=== PATIENT | male | born 1980 | race Caucasian/White ===

== ENCOUNTER 2017-05-12 09:52 | Outpatient (CLI) | payer OTHER | END 2017-05-12 09:53 | disposition home or self-care (01) | LOC: SC 09:52 | PROVIDERS: ATTEND Internal Medicine Pulmonary Disease | DX: G47.30 Sleep apnea, unspecified (principal); G47.10 Hypersomnia, unspecified; R06.83 Snoring; R53.83 Other fatigue | CPT/HCPCS: 99203; 99212 ==

== ENCOUNTER 2017-10-17 19:23 | Outpatient (CLI) | payer OTHER | END 2017-10-17 19:24 | disposition home or self-care (01) | LOC: SC 19:23 | PROVIDERS: ATTEND Internal Medicine Pulmonary Disease | DX: G47.33 Obstructive sleep apnea (adult) (pediatric) (principal); G47.61 Periodic limb movement disorder | CPT/HCPCS: 95810 ==

== ENCOUNTER 2017-11-12 14:27 | Outpatient (CLI) | payer OTHER | END 2017-11-12 14:28 | disposition home or self-care (01) | LOC: SC 14:27 | PROVIDERS: ATTEND Nurse Practitioner Family | DX: G47.33 Obstructive sleep apnea (adult) (pediatric) (principal) | CPT/HCPCS: 99212; 99214 ==

== ENCOUNTER 2021-10-22 08:00 | Outpatient (CLI) | payer OTHER ==
--- NOTE | 2021-10-22 17:36 | XRAY Report ---
PROCEDURE: Shoulder 3 View RT INDICATIONS: SHOULDER PX TECHNIQUE: 4 views of the shoulder were acquired. COMPARISON: None. FINDINGS: Bones: No fractures or dislocations. Mild acromioclavicular joint osteoarthritic changes are seen w ith joint space narrowing and subchondral sclerosis. No suspicious bony lesions. Visualized ribs jd ear intact. Soft tissues: No suspicious soft tissue calcifications. IMPRESSION: Mild right acromioclavicular joint osteoarthritis. No fracture or dislocation. No gross soft tissue abnormality. Reviewed by: Tomy Avilez MD on 10/22/2021 5:35 PM PDT Approved by: Tomy Avilez MD on 10/22/2021 5:35 PM PDT Station ID: [id number]
== END 2021-10-22 23:59 | disposition home or self-care (01) ==
LOC: DI.WOS 08:00
PROVIDERS: ATTEND Physician Assistant
DX: M19.011 Primary osteoarthritis, right shoulder (principal)

== ENCOUNTER 2022-01-07 09:33 | Outpatient (CLI) | payer OTHER ==
[2022-01-07 10:11] VITALS: BP 120/72
--- NOTE | 2022-01-07 10:11 | SLEEP CARE CONSULTATION ---
Information from patient questionnaire entered by Junaid Martin. I have reviewed and concur with the information entered by Junaid Martin. This document represents the service I personally performed and the decisions made by me, Alexandru Aburto MD, [facility]. History of Present Illness Service Date and Time: 01/07/2022 0933 Reason for Visit: Re-establish care Chief Complaint: reports: Unrefreshed sleep, Snoring, Excessive daytime sleepiness, Fatigue Date of Onset: YEARS Usual bedtime: 10PM Time it takes to fall asleep: 30 MINUTES Snores at night: Yes Observed to quit breathing while asleep: Yes Sleeps alone due to snoring: No (PARTNER HAS TO FALL ASLEEP BEFORE PT ) Number of times waking at night: 1-2 Reasons for waking at night: reports: Other (UNKNOWN REASON ) Toss, Turn, or Twitch while sleeping: Yes Recalls having dreams: Yes (SOMETIMES) Usually gets out of bed at: 530 Feels refreshed in the morning: No Morning headache: No Sleepy or fatigued during the day: Yes Ever fallen asleep while driving: No Takes day naps: No Dreams during day naps: No Prior sleep studies: Yes Year and Where: [facility] 2017 Additional HPI information: I had the pleasure of seeing Mr. Perez today regarding obstructive sleep apnea- hypopnea. As you know, he is a 36-year-old gentleman who was diagnosed here with mild obstructive sleep apnea-hypopnea (AHI = 9.8 and khalif oxygen saturation = 85%). The respiratory events occurred almost exclusively during supine sleep. The patient was symptomatic for fatigue and excessive daytime sleepiness. Different treatment options were discussed, and he went with the oral appliance therapy. He did not return until now. He said the oral appliance did not work because he continued to feel tired after 6 months of using it. - Parasomnia Symptoms Ever been unable to move upon waking from sleep: Yes Walks in sleep: No Talks in sleep: No Ever acted out dreams in sleep: No Ever felt weak in the knees when startled or emotional: No Bothered by creepy, crawly, restless sensations in legs: No Problems with memory or concentration: Yes Subjective Initial Paradise Sleepiness Scale score: 8 (12/16/21) Social History The patient's occupation is a [employer]. Patient is and lives in [place]. Have you smoked in the past 12 months: No Alcohol use: Yes Alcohol amount and frequency: 1-3 A WEEK Caffeine use: Yes Caffeine amount and frequency: 3-5 A DAY Family History Family history of sleep disordered breathing: Yes Family Hx Sleep Apnea: Father: Snoring Allergies and Home Medications Known drug allergies: No Drug allergies reviewed: Yes Home medication list reviewed: Yes Allergy and home medication list: Allergies No Known Drug Allergies Allergy (Verified 08/29/14 08:52) Review of Systems Weight gain over past 5 years: 15 Cardiovascular: denies: high blood pressure, palpitations, chest pain, irregular heart rate or pulse, leg or foot swelling, have to sleep sitting up, other Respiratory: denies: shortness of breath, wheeze, sputum production, chronic cough, other Gastrointestinal: denies: heartburn, difficulty swallowing, nausea, vomitting, diarrhea, abdominal pain, other Urinary: denies: incontinence, frequency, urgency, impotence, other Neurological: denies: headaches, seizure, head trauma, disorientation, speech dysfunction, gait or balance problems, fainting or unconsciousness, other Psychiatric: denies: Attention Deficit Hyperactivity, anxiety, depression, mood disorder, claustrophobia, other Ear/Nose/Throat: denies: nasal congestion, sinus problems, nose bleeds, dry mouth/throat, hoarseness, injury to nose, tonsillectomy, wisdom teeth removed, other Endocrine: denies: thyroid disease, history of goiter, sluggishness, too hot or cold, excessive thirst, increased appetite, increased urination, unexplained weakness, other Musculoskeletal: denies: joint pain, neck pain, back pain, joint swelling, muscle pain or cramping, mobility problems, other Immunologic: reports: allergies to food or environment Physical Exam Vital signs obtained and entered by: FREDI CORONEL Blood Pressure: 120/72 (LEFT ARM ) Cuff size: regular Heart Rate: 61 O2 Saturation: 97 Height: 5 ft 10 in Weight: 237 lb Body Mass Index: 34.0 BMI Classification: Obese Neck circumference: 18 (INCHES ) Mood/affect: Normal HEENT: No craniofacial malformation Nostrils: partially obstructed (left) Turbinates: normal Septum: midline Mouth and throat: narrow oropharynx Soft palate: long Hard palate: normal Uvula: normal Uvula visualization: 50% Mallampati Class II Tongue: normal in size Tonsils: small Chin and jaw: normal size and position Neck: normal w/o lymphadenopathy or thyromegaly Heart: regular rate and rhythm Lungs: clear bilaterally Extremities: no edema or clubbing Neurologic: intact Impression and Plan IMPRESSION: 1. Obstructive Sleep Apnea-Hypopnea Syndrome, mild when diagnosed 4 years ago. He did not benefit from the oral appliance therapy. He is now interested in the positive airway pressure therapy. Therefore, I will repeat the in-laboratory polysomnography. Plan: 1. Schedule polysomnography and return in 1 to 2 weeks after the study to discuss result and initiate therapy. 2. Avoid long distance driving or when feeling sleepy. 3. Avoid alcohol, sedative and muscle relaxant around bedtime. 4. Attempt to lose weight. Follow up with Sleep Care in: 1-2 months Visit Type: In Office Time Spent with Patient (minutes): 15 Provider Statement: I spent 100% of the Face to Face Visit with the patient with greater than 50% spent counseling the patient and coordination of care.
== END 2022-01-07 09:34 | disposition home or self-care (01) ==
LOC: SC 09:33
PROVIDERS: ATTEND Internal Medicine Pulmonary Disease
DX: G47.33 Obstructive sleep apnea (adult) (pediatric) (principal); E66.9 Obesity, unspecified; Z68.34 Body mass index [BMI] 34.0-34.9, adult
CPT/HCPCS: 99202; 99212

== ENCOUNTER 2022-02-05 20:27 | Outpatient (CLI) | payer OTHER | END 2022-02-05 20:28 | disposition home or self-care (01) | LOC: SC 20:27 | PROVIDERS: ATTEND Internal Medicine Pulmonary Disease | DX: G47.33 Obstructive sleep apnea (adult) (pediatric) (principal) | CPT/HCPCS: 95810 ==

== ENCOUNTER 2022-02-27 14:31 | Outpatient (CLI) | payer OTHER ==
[2022-02-27 14:49] VITALS: BP 120/70
--- NOTE | 2022-02-27 14:49 | SLEEP CARE CONSULTATION ---
Information from patient questionnaire entered by Shamika Hilliard. I have reviewed and concur with the information entered by Shamika Hilliard. This document represents the service I personally performed and the decisions made by me, Nicole Cordero ARNP. History of Present Illness Service Date and Time: 02/27/2022 1431 Initial Alloy Sleepiness Scale score: 8 (12/16/21) Current Alloy Sleepiness Scale score: 13 (02/27/2022) Additional HPI information: JAMES GUTIERREZ returns for follow up and results of the recently performed polysomnography. I explained the pathophysiology behind obstructive sleep apnea. We then spent quite a bit of time discussing different treatment options. For mild obstructive sleep apnea, surgery and oral appliance are alternatives to nasal CPAP therapy but in moderate or severe cases, nasal CPAP is the most effective and reliable treatment. Because apnea is primarily in supine position, then positional management therapy could be effective. Methods discussed such as positioning with pillows to prevent supine sleep. I reviewed the impact of weight changes on sleep apnea and strongly recommended losing weight. After some discussion, the patient opted to go with the nasal CPAP therapy. Nasal autoCPAP set at 4-15 cmH20 will be ordered with rationale explained. A manual titration study will be ordered if unable to find optimal pressure with office adjustments. I explained how CPAP machine works and what to expect when using the machine. Using CPAP every night in order to get used to it was emphasized. Patient advised to put CPAP mask on before getting into bed so as not to fall asleep w ithout CPAP. To assist acclimation to CPAP use, it could also be used for a short time during day while reading or watching TV. The patient was instructed to call the CPAP supplier to discuss any mechanical problem that may occur. If the mask given is uncomfortable or is difficult to keep on through the night even with adjustment, contact the CPAP supplier as many will replace with another mask style if notified before 30 days. If snoring or perceives is not getting enough air or too much air from the machine, notify this office.Patient counseled not drink alcohol less than 4 hours before bedtime as it can increase snoring and apnea. Patient was cautioned about risks of drowsy driving until sleepiness symptoms resolve. Sleep Study - Results Type of Sleep Study: Polysomnography (COMPLETED 02/05/2022) Prior sleep studies: Yes Year and Where: [facility] 2017 Polysomnography/Home Sleep Study results: IMPRESSION: The quality of the study is good. The patient had normal sleep efficiency. The sleep architecture was abnormal for sleep fragmentation and reduced amount of time spent in slow wave sleep (N3). Respiratory monitoring showed mild obstructive sleep apnea-hypopnea (AHI = 13.7) associated with frequent arousals, oxyhemoglobin desaturation and mild hypoxia (khalif oxygen saturation of 81%). The respiratory events occurred almost exclusively during supine sleep (supine AHI = 45.4; non-supine = 4.42). Snore was moderate to loud in intensity. There was no significant periodic leg movement of sleep. Cardiac rhythm was normal sinus rhythm without significant arrhythmia. No abnormal behavior (parasomnia) observed during the night. Allergies and Home Medications Drug allergies reviewed: Yes (NKDA) Home medication list reviewed: Yes (no changes) Review of Systems Review of systems same as previous: Yes (no changes) Physical Exam Vital signs obtained and entered by: SHAMIKA Reid MA Blood Pressure: 120/70 (LEFT ARM) Cuff size: regular Heart Rate: 56 O2 Saturation: 96 Height: 5 ft 10 in Weight: 241 lb 3.2 oz Body Mass Index: 34.6 BMI Classification: Obese Impression and Plan 1. Obstructive Sleep Apnea-Hypopnea Syndrome, mild, with lowest oxygen saturation of 81%. Obviously this is the cause of the patients symptoms of unrefreshed sleep, and excessive daytime sleepiness. As mentioned above, the patient will be started on nasal autoCPAP therapy with pressure set at 4-15 cmH2 O. Compliance guidelines also reviewed. A copy of compliance guidelines will be given for reference at check out. Because the apnea is more severe supine, I instructed to avoid sleeping supine using pillow positioning until able to start CPAP use. 2. Obesity, unspecified. Currently patients BMI is 34.6. Obesity increases the risk of apnea, CPAP pressure requirements and overall health risks especially cardiovascular and diabetes. Thus patient is advised to lose weight. * Nasal auto CPAP therapy, pressure at 4-15 cm H2O. * Attempt to lose weight. * Avoid alcohol consumption near bedtime. * Avoid supine sleep until using CPAP. * The patient is again cautioned about driving until sleepiness completely resolves. * Return one month after CPAP obtained. I will assess response to therapy and compliance at that time. Counseling Topics: Sleeping position, Weight loss health impact Visit Type: In Office Time Spent with Patient (minutes): 21 Provider Statement: I spent 100% of the Face to Face Visit with the patient with greater than 50% spent counseling the patient and coordination of care.
== END 2022-02-27 14:32 | disposition home or self-care (01) ==
LOC: SC 14:31
PROVIDERS: ATTEND Nurse Practitioner Family
DX: G47.33 Obstructive sleep apnea (adult) (pediatric) (principal); E66.9 Obesity, unspecified; Z68.34 Body mass index [BMI] 34.0-34.9, adult
CPT/HCPCS: 99212; 99213

== ENCOUNTER 2023-02-25 06:55 | Outpatient (CLI) | payer OTHER ==
[2023-02-25] MEDS ORDERED: GADOTERATE MEGLUMINE 10 MMOL/20 ML VIAL ONE (07:23)
--- NOTE | 2023-02-25 14:09 | MRI Report ---
PROCEDURE: FOOT W/WO - LT INDICATIONS: SOFT TISSUE DISORDER CONTRAST: 2OML CLARISCAN TECHNIQUE: Noncontrast sagittal T1 spin echo and T2 fast spin echo with fat saturation, long-axis T1 spin echo a nd T2 fast spin echo with fat saturation; short-axis T1 spin echo, proton density fast spin echo, and T2 fast spin echo with fat saturation through the forefoot. Post-contrast short axis, long axis, an d sagittal T1 spin echo with fat saturation through the forefoot. COMPARISON: None. FINDINGS: Image quality: Excellent. Bones and joints: No suspicious osseous enhancement. No bone marrow contusions or metatarsal stress fractures. Mild first MTP joint osteoarthritis is seen with joint space narrowing and subchondral sc lerosis. Soft tissues: There is edema involving the abductor digiti minimi muscle and tendon and show mild con trast enhancement. No other area of abnormal soft tissue enhancement. Rest of the visualized plantar foot muscles demonstrate normal signal and bulk. Visualized flexor and extensor tendons appear intac t, without tenosynovitis. The distal insertions of the peroneus brevis and longus tendons appear int act. The principal Lisfranc ligament appears intact. No soft tissue ganglion cysts or bursal fluid collections. Sagittal images demonstrate no evidence for plantar plate tears. IMPRESSION: 1. Tendinosis involving distal left abductor digiti minimi tendon extending to musculotendinous junct ion with strain/partial thickness tear involving left abductor digiti minimi muscle along dorsal and lateral aspect of fifth metatarsal shaft. No full-thickness muscle or tendon rupture. 2. No enhancing soft tissue mass or drainable fluid collection. 3. Mild first MTP joint osteoarthritis. No marrow edema. No fracture or dislocation. No abnormal intr aosseous enhancement. Reviewed by: Tomy Avilez MD on 02/25/2023 2:08 PM PST Approved by: Tomy Avilez MD on 02/25/2023 2:08 PM PST Station ID: [id number]
--- NOTE | 2023-02-25 14:14 | MRI Report ---
PROCEDURE: ANKLE W/WO - LT INDICATIONS: SOFT TISSUE DISORDER CONTRAST: 2OML CLARISCAN TECHNIQUE: Noncontrast sagittal T1 spin echo and T2 fast spin echo with fat saturation, axial proton density fas t spin echo and T2 fast spin echo with fat saturation, axial T1 spin echo with fat saturation, quezada l T1 spin echo and T2 fast spin echo with fat saturation through the ankle/hindfoot. Post-contrast a xial, coronal, and sagittal T1 spin echo with fat saturation through the ankle/hindfoot. COMPARISON: None. FINDINGS: Image quality: Excellent. Bones and joints: No suspicious osseous enhancement. Mild midfoot and hindfoot joint osteoarthritis is seen with joint space narrowing and subchondral sclerosis. Very mild marrow edema involving later al periphery of lateral malleolus is seen without discrete fracture line. No area of abnormal marrow signal. No hindfoot coalitions. No osteochondral injuries of the talar dome. No pathologic joint ef fusions. Medial structures: The posterior tibialis tendon is mildly thickened with small amount of fluid dist ending tendon sheath. The flexor digitorum longus, and flexor hallucis longus tendons are intact. Th e posterior tibial neurovascular bundle appears normal within the tarsal tunnel, without extrinsic ma ss effect. The deep and superficial layers of the deltoid ligament appear normal. The spring ligame nt is intact. Lateral structures: The anterior talofibular ligament is thickened with intrasubstance T2 hyperinten se signal. The calcaneofibular, and posterior talofibular ligaments appear intact. More superiorly, the anterior and posterior tibiofibular ligaments appear normal, as is the intermalleolar ligament. The peroneus longus and brevis tendons are thickened with subtle intrasubstance T2 hyperintense signa l at the level of lateral malleolus extending to the level of TMT joints. The sinus tarsi demonstrate s normal fatty signal. Anterior structures: The tibialis anterior, extensor hallucis longus, and extensor digitorum longus tendons appear intact. Posterior and plantar structures: Achilles tendon is intact. Medial and lateral bands of the planta r fascia are of normal thickness. Edema within visualized abductor digiti minimi muscle is noted noelle t are evaluated on left foot MRI. IMPRESSION: 1. Suggestion of muscle strain/partial thickness tear involving left abductor digiti minimi muscle, p lease correlate with MRI of foot findings. 2. No enhancing soft tissue mass or drainable fluid collection. No abnormal intraosseous enhancement. 3. Minimal bony contusion involving lateral periphery of lateral malleolus. No fracture or dislocatio n. No osteochondral injuries of talar dome. 4. Low-grade tenosynovitis involving posterior tibialis tendon at the level of distal talus and talar navicular joint. 5. Low to moderate grade tendinosis and intrasubstance partial thickness tear involving peroneus tend ons at the level of lateral malleolus extending to the level of TMT joint. 6. Low-grade intrasubstance partial thickness tear involving anterior talofibular ligament. Reviewed by: Tomy Avilez MD on 02/25/2023 2:12 PM PST Approved by: Tomy Avilez MD on 02/25/2023 2:12 PM PST Station ID: [id number]
[2023-02-25] MEDS ORDERED: GADOTERATE MEGLUMINE 10 MMOL/20 ML VIAL IVP ONE (18:28)
== END 2023-02-25 06:56 | disposition home or self-care (01) ==
LOC: DI 06:55
PROVIDERS: ATTEND Orthopaedic Surgery
DX: S96.812A Strain of other specified muscles and tendons at ankle and foot level, left foot, initial encounter (principal); M19.072 Primary osteoarthritis, left ankle and foot; S80.12XA Contusion of left lower leg, initial encounter; S93.492A Sprain of other ligament of left ankle, initial encounter
CPT/HCPCS: 73720; 73723; A9575